=== PATIENT | female | born 2000 | race Caucasian/White ===

== ENCOUNTER 2020-03-24 10:23 | Emergency (ER) | payer MEDICAID, OTHER ==
--- NOTE | 2020-03-24 11:10 | NUR ---
This RN to waiting room et called pt name with no answer. Pt not in waiting room at this time.
== END 2020-03-24 11:37 | disposition left against medical advice (07) ==
LOC: ER 10:25
DX: O26.891 Other specified pregnancy related conditions, first trimester (principal); Z3A.01 Less than 8 weeks gestation of pregnancy